=== PATIENT | male | born 1935 | race Caucasian/White ===

== ENCOUNTER 2017-01-29 14:51 | Inpatient (IN) | payer OTHER ==
[~2017-01-29] VITALS: Ht 178 cm; Wt 101.0 kg
--- NOTE | ~2017-01-29 | CON ---
[place], [place] REPORT OF CONSULTATION NAME: [facility]RAM [facility]OUSSAINT [facility]: [id number] UNIT #: [id number] ROOM: 412 DOCTOR: JAIRO LOCO MD BIRTHDATE: [birth year] DOS: 02/03/2017 The consultation requested for the patient by the hospitalist services. REASON FOR CONSULTATION: Nonresolving respiratory symptoms. HISTORY OF PRESENT ILLNESS: This is an 81-year-old white male who has been hospitalized since 01/29/2017. The patient has been noted with acute ongoing symptoms a few days prior to admission to the hospital. He started with symptoms having progressive increased cough, and the patient with intermittent sputum expectoration, wheezing, shortness of breath with exertion and tightness in the chest. The patient has been managed at this time for acute exacerbation of chronic obstructive pulmonary disease/bronchial asthma by the hospitalist services. The patient stated he has not been improving with current medical management, continued to have cough which is currently noted nonproductive, inability to expectorate sputum with persistent wheezing, chest tightness as well as symptoms of shortness breath. Denies symptoms of hemoptysis or chest trauma. REVIEW OF SYSTEMS: CONSTITUTIONAL SYMPTOMS: Denies symptoms of fever or chills. The patient complains symptoms of fatigue and tiredness. EYES: Denies any burning, redness, or tenderness. EARS, NOSE, THROAT: No sore throat, hoarseness, otalgia, postnasal drainage. CARDIOVASCULAR: Denies anginal pain, edema or pain of the lower extremities. GASTROINTESTINAL: Denies dysphagia, nausea, vomiting, diarrhea, abdominal pain, hematemesis, melena, hematochezia. SKIN: Denies lesions or rashes. GENITOURINARY SYMPTOMS: Denies dysuria, suprapubic pain, hematuria. CENTRAL NERVOUS SYSTEM: Denies any headache, diplopia, syncopal episodes or seizures. Remaining systems were reviewed with the patient, they were noted all negative. PAST MEDICAL HISTORY: 1. Type 2 diabetes mellitus. 2. Moderate obesity. 3. Essential hypertension. 4. Diabetic nephropathy. 5. Paroxysmal atrial fibrillation. 6. History of cancer of the bladder. PAST SURGICAL HISTORY: 1. Left knee arthroplasty. 2. Cholecystectomy. 3. TURP. 4. Hydrocelectomy. SOCIAL HISTORY: The patient is currently , lives at home. He was noted as lifetime nonsmoker. There is no history of alcohol use or any illicit drugs. [place], [place] REPORT OF CONSULTATION NAME: KHURRAM TOUSSAINT UNIT #: [id number] ROOM: 412 DOCTOR: JAIRO LOCO MD BIRTHDATE: [birth year] FAMILY HISTORY: The patient's father at the age of 8080 years old from old age. Mother at the age of 5050 years old, complications of GI cancer. MEDICATIONS: The home medications noted use of Eliquis, aspirin, clonidine, Zetia. Recent prescription for doxycycline 100 mg b.i.d., Janumet, Neurontin, potassium chloride, Diovan HCT, and other p.r.n. medications administration. ALLERGIES: 1. The drug allergy history of the patient was noted remarkable for PENICILLIN causing anaphylaxis: 2. ELIQUIS. PHYSICAL EXAMINATION: GENERAL: An 81-year-old male who has been currently noted awake and alert. The patient's height is recorded as 5 feet 10 inches, weight of 223 pounds, BMI 31.8. VITAL SIGNS: Shows a normal temperature, respiratory rate of 20, heart rate 88, blood pressure 148/67. Pulse oxygen saturation on room air is 96% saturation recorded. HEENT: Examination shows head is atraumatic. Eyes: No icterus. NECK: Supple. CARDIOVASCULAR: S1, S2 audible. LUNGS: Shows diffuse reduced breath sounds. Lungs noted bilaterally with severe expiratory wheezing, no crackles. ABDOMEN: Flat, soft, nontender. Bowel sounds present. EXTREMITIES: Showed no edema or cyanosis. NEUROLOGIC: Cranial nerves 2 through 12 intact. No focal deficits. MUSCULOSKELETAL: No deformities. SKIN: Showed no lesions or rashes. LABORATORY DATA: CBC of the patient on 01/30/2017 was noted essentially normal. CMP of the patient on 01/30/2017, glucose 214, BUN and creatinine was normal. Sodium 146, potassium 2.9. CBC of this morning, WBC count 15.4, hemoglobin and hematocrit normal, platelet count of 272,000, 85% segmented neutrophils noted with differentials. BMP of the patient that was done on 02/03/2017 of BUN 31, creatinine was normal, glucose 189, potassium 3.0 with remaining electrolytes as normal. Review of the radiology data: The chest x-ray of the patient that was done on 01/29/2017 was reviewed. It shows changes of hyperinflation and COPD was noted with possibility of underlying fine interstitial pulmonary fibrosis cannot be completely excluded. IMPRESSION: 1. The patient who has been currently noted with a new onset of acute exacerbation of bronchial asthma and tracheobronchitis. 2. History of cancer of the bladder was also described. 3. Moderate obesity. 4. Leukocytosis, most likely induced by the corticosteroids. 5. Azotemia of the patient related to the use of the corticosteroids. [place], [place] REPORT OF CONSULTATION NAME: KHURRAM TOUSSAINT UNIT #: [id number] ROOM: 412 DOCTOR: ROGERIO RICHARDSON MD,JAIRO BIRTHDATE: [birth year] PLAN OF TREATMENT: Continue current medical management with bronchodilators, use of the current steroids, Solu-Medrol 40 mg b.i.d., and other treatment plan of management. Usual care as previously to be continued as well. Further treatment changes will be done based on the progression of his illness. The patient was suspected severe impaction of the mucus plugs which has not been resolving with the current conservative treatment. The patient is on maximal medical therapy. Continue current dose of corticosteroids, bronchodilators, and the flutter valve usage. Fiberoptic bronchoscopy planned tentatively to be done offensive morning for the patient. The symptom does not resolve. The risk and benefits of procedure have been obtained for the patient. He was agreeable for the current procedure. In the meantime, all other treatment to be continued previously, close monitoring of respiratory status. Thanks for allowing me to participate in the care of this patient. JAIRO BEATTY MD CM:CONSTR:REPORT OF CONSULTATION 1231 02/04/17 0321 interface
--- NOTE | ~2017-01-29 | PR ---
[place], [place] PROGRESS NOTE NAME: KHURRAM TOUSSAINT UNIT #: [id number] ROOM: 412 DOCTOR: ROGERIO RICHARDSON MD,JAIRO BIRTHDATE: [birth year] DOS: 02/05/2017 SUBJECTIVE: The patient has been noted persistent coughing, chest congestion, inability to expectorate sputum. Continue antibiotics, bronchodilators and the corticosteroids. Denies symptoms of chest pain or any abdominal pain. OBJECTIVE: VITAL SIGNS: For the patient which was recorded, showed the temperature noted as normal. The respiratory rate was 20, heart rate 85, blood pressure 140/75. Pulse oxygen saturation of the patient on room air was 98% saturation. HEENT: Showed no new change. NECK: Supple. CARDIOVASCULAR SYSTEM: S1, S2 audible. LUNGS: The patient was noted with moderate expiratory wheezing. The patient remains persistent without any crackles. ABDOMEN: Soft, nontender. LABORATORY DATA: CBC today: WBC count 19.8, 83% segmented neutrophils, noted differential with the remaining CBC normal. The BMP of the patient, glucose ____, BUN 29, creatinine was normal. IMPRESSION: 1. Persistent acute exacerbation of bronchial asthma with the tracheobronchitis for the patient new onset. 2. History of bladder cancer. 3. Leukocytosis for the patient was still noted significant at this time and was noted increased for the patient 19.8 most likely related to corticosteroids. PLAN OF TREATMENT: Proceed with the bronchoscopy as planned. No other change in treatment for the patient. Any changes in the medical management needed will be done after bronchoscopy. JAIRO BEATTY MD CM:PNTRANS [id number] JAIRO RICHARDSON MD 02/06/17 0347 interface
--- NOTE | ~2017-01-29 | PR ---
[place], [place] PROGRESS NOTE NAME: KHURRAM TOUSSAINT UNIT #: [id number] ROOM: 412 DOCTOR: ROGERIO RICHARDSON MD,JAIRO BIRTHDATE: [birth year] DOS: 02/04/2017 PULMONARY FOLLOWUP SUBJECTIVE: He has been still noticing symptoms of coughing, chest congestion, and inability to expectorate sputum. Shortness breath and wheezing was also described. OBJECTIVE: VITAL SIGNS: For the patient, which were recorded shows normal temperature, respiratory rate 18, heart rate 79, blood pressure 158/71. Pulse oxygen saturation of the patient recorded as 90% on 2 L nasal cannula. HEENT: Showed no new change. NECK: Supple. CARDIOVASCULAR: S1, S2 audible. LUNGS: The patient noted with decreased breath sounds, expiratory wheezing in the lungs were noted bilaterally. ABDOMEN: Soft, nontender. IMPRESSION: 1. The patient with acute tracheobronchitis. The patient was noted with a new onset for this patient with increased respiratory symptoms at this time, currently treated with medication. 2. Severe impacted mucus at the endobronchial tree were noted. 3. Leukocytosis. The patient was still noted CBC today showing WBC count 13.6. PLAN OF TREATMENT: Proceed with bronchoscopy planned to be done for this patient tomorrow. In the meantime, continue the patient on current therapy, plan of management. No changes in the treatment to be done today. JAIRO BEATTY MD CM:PNTRANS [id number] JAIRO RICHARDSON MD 02/05/17 0710 interface
--- NOTE | ~2017-01-29 | PROC NOTE ---
[place], [place] PROCEDURE NOTE NAME: KHURRAM TOUSSAINT UNIT #: [id number] ROOM: 412 DOCTOR: ROGERIO RICHARDSON MD,JAIRO BIRTHDATE: [birth year] DOS: 02/05/2017 PROCEDURE: Bronchoscopy. PREOPERATIVE DIAGNOSES: 1. The patient with ongoing nonresolving cough at this time with maximum medical therapy. 2. Leukocytosis. PROCEDURE DESCRIPTION: Informed consent was obtained for the patient. The patient brought to the OR and placed in supine position. Conscious sedation administered by the Anesthesia Department. After achieving appropriate sedation, airway introduced into the mouth. Bronchoscope advanced into the airway into laryngeal area. Epiglottis and vocal cords were seen. Vocal cords were moving symmetrically with movements for this patient. Bronchoscope advanced into the tracheal lumen, which are noted with thick mucoid secretion with small purulent secretions suctioned out at the sharmila level. Right upper, right middle, right lower, left upper, lingular lower lobe bronchi were all examined. Moderate patches of similar secretions as noted in trachea causing impaction of the endobronchial tree subsegments. All secretions suctioned out with the help of normal saline wash, sent for culture. Procedure well tolerated by the patient without any complications. Postoperative findings will be discussed with the patient once the patient recovers the effects of acute sedation. JAIRO BEATTY MD CM:PROCNOTE:PROCEDURE NOTE [phone] JAIRO RICHARDSON MD
[~2017-01-29 14:51] MED LIST: ASPIRIN ADULT L81 M1 PO; CLONIDINE0.2 MG PO; DOXYCYCLINE100 M3 PO; ELIQUIS5 M1 PO; JANUMET 1000 MG1 TA1 PO; KLOR-CON M2020 ME1 PO; NEURONTIN300 MG PO; TAZTIA XT360 MG PO; UNSURE OF MEDS; VALSARTAN-HCTZ1 EAC3 PO
[2017-01-29 14:57] VITALS: BP 1132/80; BP 132/80
[2017-01-29 15:31] LABS: BASO # 0.2 10*3/uL (0.0-0.1); BASO % 1.8 % (0.0-1.0); EOS # 1.6 10*3/uL (0.0-0.4); EOS % 18.1 % (1.0-4.0); HEMATOCRIT 44.1 % (42.0-52.0); HEMOGLOBIN 14.9 g/dl (14.0-18.0); LYMPH # 1.4 10*3/uL (1.3-4.4); LYMPH % 15.4 % (27.0-41.0); MEAN CELL VOLUME 85.3 fl (80.0-94.0); MEAN CORPUSCULAR HGB 28.8 pg (27.0-31.0); MEAN CORPUSCULAR HGB CONC 33.8 g/dl (33.0-37.0); MEAN PLATELET VOLUME 10.5 fl (9.6-12.3); MONO # 0.8 10*3/uL (0.1-1.0); MONO % 9.5 % (3.0-9.0); NEUT # 4.9 10*3/uL (2.3-7.9); PLATELET COUNT AUTOMATED 223 10*3/uL (130-400); RED BLOOD COUNT 5.17 10*6/uL (4.50-5.90); RED CELL DISTRI WIDTH 13.2 % (0-14.5); WHITE BLOOD COUNT 8.9 10*3/uL (4.8-10.8)
[2017-01-29 15:46] LABS: ALBUMIN 4.1 gm/dl (3.1-4.5); ALKALINE PHOSPHATASE 132 U/L (45-117); BILIRUBIN, TOTAL 0.8 mg/dl (0.2-1.0); BUN 21 mg/dl (7-24); CARBON DIOXIDE 30 mmol/L (21-32); CHLORIDE 107 mmol/L (98-107); EST GLOM FILT AFRICAN AMERICAN > 60 ml/min; GLUCOSE 125 mg/dL (65-99); POTASSIUM 2.6 mmol/L (3.5-5.1); SGOT/AST 18 IU/L (3-35); SGPT/ALT 17 U/L (12-78); SODIUM 149 mmol/L (136-145); TOTAL PROTEIN 7.6 gm/dL (6.4-8.2)
[2017-01-29 15:51] LABS: CKMB 0.7 ng/ml (0.5-3.6); CPK 62 U/L (39-308); TROPONIN I < 0.015 ng/ml (<0.045)
[2017-01-29 16:58] VITALS: BP 145/77
[2017-01-29 18:16] VITALS: BP 166/83
[2017-01-30] VITALS: BP 121/70
[2017-01-30 05:59] LABS: ALBUMIN 3.6 gm/dl (3.1-4.5); ALKALINE PHOSPHATASE 127 U/L (45-117); BILIRUBIN, TOTAL 0.5 mg/dl (0.2-1.0); BUN 22 mg/dl (7-24); CARBON DIOXIDE 31 mmol/L (21-32); CHLORIDE 104 mmol/L (98-107); CHOLESTEROL 192 mg/dL (<200); EST GLOM FILT AFRICAN AMERICAN > 60 ml/min; FREE T4 1.25 ng/dl (0.76-1.46); GLUCOSE 214 mg/dL (65-99); HDL CHOLESTEROL 48 mg/dl (40-60); LDL CHOLESTEROL 128 mg/dL (9-159); MAGNESIUM 1.8 mg/dL (1.5-2.1); PHOSPHOROUS 1.4 mg/dL (2.5-4.9); POTASSIUM 2.9 mmol/L (3.5-5.1); SGOT/AST 18 IU/L (3-35); SGPT/ALT 21 U/L (12-78); SODIUM 146 mmol/L (136-145); TOTAL PROTEIN 6.9 gm/dL (6.4-8.2); TRIGLYCERIDES 80 mg/dl (<150); VLDL CHOLESTEROL 16 mg/dL (6-40)
[2017-01-30 06:04] LABS: BASO % 0.1 % (0.0-1.0); HEMATOCRIT 42.7 % (42.0-52.0); HEMOGLOBIN 14.4 g/dl (14.0-18.0); LYMPH # 0.9 10*3/uL (1.3-4.4); LYMPH % 13.4 % (27.0-41.0); MEAN CELL VOLUME 85.6 fl (80.0-94.0); MEAN CORPUSCULAR HGB 28.9 pg (27.0-31.0); MEAN CORPUSCULAR HGB CONC 33.7 g/dl (33.0-37.0); MEAN PLATELET VOLUME 10.9 fl (9.6-12.3); MONO # 0.1 10*3/uL (0.1-1.0); MONO % 0.7 % (3.0-9.0); NEUT # 5.7 10*3/uL (2.3-7.9); NEUT % 85.4 % (47.0-73.0); PLATELET COUNT AUTOMATED 224 10*3/uL (130-400); RED BLOOD COUNT 4.99 10*6/uL (4.50-5.90); RED CELL DISTRI WIDTH 13.2 % (0-14.5); THYROID STIM HORMONE (HS) 0.052 uIU/ml (0.358-4.75); WHITE BLOOD COUNT 6.7 10*3/uL (4.8-10.8)
[2017-01-30 06:10] LABS: INTERNATIONAL NORM RATIO 1.1 (2.0-3.5); PROTHROMBIN TIME 11.7 SECONDS (9.0-12.4)
[2017-01-30 06:37] LABS: HEMOGLOBIN A1c 6.3 % (4.8-5.6)
[2017-01-30 08:00] VITALS: BP 121/74; BP 160/60
[2017-01-30 09:53] LABS: VITAMIN D, 25-HYDROXY 32.5 ng/mL (30-100)
[2017-01-30 09:56] LABS: FOLIC ACID > 24.00 ng/mL (>5.38)
[2017-01-30 12:00] VITALS: BP 153/71
[2017-01-30 16:00] VITALS: BP 140/52
[2017-01-30 20:00] VITALS: BP 147/61
[2017-01-31] VITALS: BP 123/52
[2017-01-31 06:00] LABS: BUN 23 mg/dl (7-24); CARBON DIOXIDE 32 mmol/L (21-32); CHLORIDE 107 mmol/L (98-107); EST GLOM FILT AFRICAN AMERICAN > 60 ml/min; GLUCOSE 188 mg/dL (65-99); SODIUM 145 mmol/L (136-145)
[2017-01-31 08:00] VITALS: BP 143/60
[2017-01-31 12:00] VITALS: BP 139/53
[2017-01-31 16:00] VITALS: BP 145/72
[2017-01-31 20:00] VITALS: BP 140/61
[2017-02-01] VITALS: BP 140/73
[2017-02-01 08:00] VITALS: BP 149/75
[2017-02-01 08:48] LABS: ALBUMIN 3.9 gm/dl (3.1-4.5); ALKALINE PHOSPHATASE 133 U/L (45-117); BILIRUBIN, TOTAL 0.5 mg/dl (0.2-1.0); BUN 23 mg/dl (7-24); CARBON DIOXIDE 32 mmol/L (21-32); CHLORIDE 103 mmol/L (98-107); EST GLOM FILT AFRICAN AMERICAN > 60 ml/min; GLUCOSE 180 mg/dL (65-99); POTASSIUM 3.1 mmol/L (3.5-5.1); SGOT/AST 20 IU/L (3-35); SGPT/ALT 28 U/L (12-78); SODIUM 146 mmol/L (136-145); TOTAL PROTEIN 7.3 gm/dL (6.4-8.2)
[2017-02-01 12:00] VITALS: BP 150/79
[2017-02-01 16:00] VITALS: BP 157/67
[2017-02-01 20:00] VITALS: BP 157/67
[2017-02-02] VITALS: BP 135/59
[2017-02-02 07:23] LABS: BASO % 0.1 % (0.0-1.0); HEMATOCRIT 44.9 % (42.0-52.0); HEMOGLOBIN 15.3 g/dl (14.0-18.0); IG # 0.2 10*3/uL (0.0-0.1); LYMPH # 1.4 10*3/uL (1.3-4.4); LYMPH % 9.1 % (27.0-41.0); MEAN CELL VOLUME 86.3 fl (80.0-94.0); MEAN CORPUSCULAR HGB 29.4 pg (27.0-31.0); MEAN CORPUSCULAR HGB CONC 34.1 g/dl (33.0-37.0); MEAN PLATELET VOLUME 10.9 fl (9.6-12.3); MONO # 0.5 10*3/uL (0.1-1.0); MONO % 3.4 % (3.0-9.0); NEUT % 86.1 % (47.0-73.0); PLATELET COUNT AUTOMATED 275 10*3/uL (130-400); RED CELL DISTRI WIDTH 13.6 % (0-14.5); WHITE BLOOD COUNT 15.1 10*3/uL (4.8-10.8)
[2017-02-02 07:49] LABS: BUN 27 mg/dl (7-24); CARBON DIOXIDE 30 mmol/L (21-32); CHLORIDE 103 mmol/L (98-107); EST GLOM FILT AFRICAN AMERICAN > 60 ml/min; GLUCOSE 222 mg/dL (65-99); SODIUM 145 mmol/L (136-145)
[2017-02-02 08:00] VITALS: BP 140/82
[2017-02-02 12:00] VITALS: BP 152/78
[2017-02-02 16:00] VITALS: BP 160/70
[2017-02-02 20:37] VITALS: BP 150/67
[2017-02-03 00:08] VITALS: BP 146/60
[2017-02-03 06:55] LABS: BASO % 0.1 % (0.0-1.0); HEMATOCRIT 44.5 % (42.0-52.0); HEMOGLOBIN 14.9 g/dl (14.0-18.0); IG # 0.2 10*3/uL (0.0-0.1); LYMPH # 1.2 10*3/uL (1.3-4.4); LYMPH % 7.9 % (27.0-41.0); MEAN CELL VOLUME 86.1 fl (80.0-94.0); MEAN CORPUSCULAR HGB 28.8 pg (27.0-31.0); MEAN CORPUSCULAR HGB CONC 33.5 g/dl (33.0-37.0); MEAN PLATELET VOLUME 10.9 fl (9.6-12.3); MONO # 0.8 10*3/uL (0.1-1.0); MONO % 5.1 % (3.0-9.0); NEUT # 13.2 10*3/uL (2.3-7.9); NEUT % 85.7 % (47.0-73.0); PLATELET COUNT AUTOMATED 272 10*3/uL (130-400); RED BLOOD COUNT 5.17 10*6/uL (4.50-5.90); RED CELL DISTRI WIDTH 13.7 % (0-14.5); WHITE BLOOD COUNT 15.4 10*3/uL (4.8-10.8)
[2017-02-03 07:30] LABS: BUN 31 mg/dl (7-24); CARBON DIOXIDE 31 mmol/L (21-32); CHLORIDE 103 mmol/L (98-107); EST GLOM FILT AFRICAN AMERICAN > 60 ml/min; GLUCOSE 189 mg/dL (65-99); SODIUM 143 mmol/L (136-145)
[2017-02-03 08:00] VITALS: BP 134/89
[2017-02-03 12:00] VITALS: BP 148/67
[2017-02-03 16:00] VITALS: BP 162/68
[2017-02-03 20:00] VITALS: BP 157/65
[2017-02-04] VITALS: BP 135/73
[2017-02-04 07:03] LABS: BASO % 0.1 % (0.0-1.0); HEMATOCRIT 45.1 % (42.0-52.0); HEMOGLOBIN 14.9 g/dl (14.0-18.0); IG # 0.2 10*3/uL (0.0-0.1); LYMPH # 1.1 10*3/uL (1.3-4.4); LYMPH % 8.3 % (27.0-41.0); MEAN CELL VOLUME 85.7 fl (80.0-94.0); MEAN CORPUSCULAR HGB 28.3 pg (27.0-31.0); MEAN PLATELET VOLUME 10.8 fl (9.6-12.3); MONO # 0.6 10*3/uL (0.1-1.0); MONO % 4.6 % (3.0-9.0); NEUT # 11.7 10*3/uL (2.3-7.9); NEUT % 85.9 % (47.0-73.0); PLATELET COUNT AUTOMATED 270 10*3/uL (130-400); RED BLOOD COUNT 5.26 10*6/uL (4.50-5.90); RED CELL DISTRI WIDTH 13.9 % (0-14.5); WHITE BLOOD COUNT 13.6 10*3/uL (4.8-10.8)
[2017-02-04 07:29] LABS: ALBUMIN 3.2 gm/dl (3.1-4.5); ALKALINE PHOSPHATASE 126 U/L (45-117); BILIRUBIN, TOTAL 0.6 mg/dl (0.2-1.0); BUN 27 mg/dl (7-24); CARBON DIOXIDE 31 mmol/L (21-32); CHLORIDE 103 mmol/L (98-107); EST GLOM FILT AFRICAN AMERICAN > 60 ml/min; GLUCOSE 211 mg/dL (65-99); POTASSIUM 3.4 mmol/L (3.5-5.1); SGOT/AST 14 IU/L (3-35); SGPT/ALT 24 U/L (12-78); SODIUM 143 mmol/L (136-145)
[2017-02-04 08:00] VITALS: BP 153/74
[2017-02-04 12:00] VITALS: BP 158/71
[2017-02-04 16:00] VITALS: BP 162/72
[2017-02-04 20:00] VITALS: BP 151/63; BP 170/60
[2017-02-05] VITALS (7 sets, daily range): BP systolic 140–169; BP diastolic 62–86
[2017-02-05 06:48] LABS: HEMATOCRIT 47.7 % (42.0-52.0); HEMOGLOBIN 16.2 g/dl (14.0-18.0); MEAN CORPUSCULAR HGB 29.6 pg (27.0-31.0); MEAN PLATELET VOLUME 10.8 fl (9.6-12.3); PLATELET COUNT AUTOMATED 298 10*3/uL (130-400); RED BLOOD COUNT 5.48 10*6/uL (4.50-5.90); RED CELL DISTRI WIDTH 13.8 % (0-14.5); WHITE BLOOD COUNT 19.8 10*3/uL (4.8-10.8)
[2017-02-05 07:15] LABS: LYMPHOCYTE # 1.8 10*3/uL (1.3-4.4); MONOCYTE # 1.6 10*3/uL (0.1-1.0); NEUTROPHIL # 16.4 10*3/uL (2.3-7.9); NEUTROPHILS 83 % (47-73); OVALOCYTES FEW; PLATELET SUFFICIENCY NORMAL (NORMAL); TOTAL CELLS COUNTED 100 #CELLS
[2017-02-05 07:23] LABS: BUN 29 mg/dl (7-24); CARBON DIOXIDE 32 mmol/L (21-32); CHLORIDE 102 mmol/L (98-107); EST GLOM FILT AFRICAN AMERICAN > 60 ml/min; GLUCOSE 213 mg/dL (65-99); POTASSIUM 3.6 mmol/L (3.5-5.1); SODIUM 143 mmol/L (136-145)
[2017-02-05] MEDS ORDERED: KLOR-CON M2020 ME1 PO (11:15)
[2017-02-05] MEDS ORDERED: LEVAQUIN500 M2 PO (11:15)
[2017-02-05] MEDS ORDERED: PREDNISONE10 MG PO (11:15)
[2017-02-06 16:10] LABS: ACID FAST SPEC PROCESSING Concentration (.)
== END 2017-02-05 14:04 | disposition home or self-care (01) | DRG 189 ==
LOC: ED 14:51 → EDHOLD 16:59 → 4E 16:59
PROVIDERS: Family Medicine; Internal Medicine; Internal Medicine Critical Care Medicine; Internal Medicine Hospice and Palliative Medicine; Registered Nurse; Student in an Organized Health Care Education/Training Program
DX: J96.01 Acute respiratory failure with hypoxia (principal); E87.0 Hyperosmolality and hypernatremia; E11.42 Type 2 diabetes mellitus with diabetic polyneuropathy; J44.0 Chronic obstructive pulmonary disease with (acute) lower respiratory infection; J45.901 Unspecified asthma with (acute) exacerbation; J44.1 Chronic obstructive pulmonary disease with (acute) exacerbation; E87.6 Hypokalemia; I48.0 Paroxysmal atrial fibrillation; E66.9 Obesity, unspecified; D72.829 Elevated white blood cell count, unspecified; T38.0X5A Adverse effect of glucocorticoids and synthetic analogues, initial encounter; J20.9 Acute bronchitis, unspecified; I10 Essential (primary) hypertension; Z90.49 Acquired absence of other specified parts of digestive tract; Y92.89 Other specified places as the place of occurrence of the external cause; Z80.0 Family history of malignant neoplasm of digestive organs; Z85.51 Personal history of malignant neoplasm of bladder; Z88.0 Allergy status to penicillin; Z79.82 Long term (current) use of aspirin; Z79.899 Other long term (current) drug therapy; Z88.8 Allergy status to other drugs, medicaments and biological substances; Z68.34 Body mass index [BMI] 34.0-34.9, adult

== ENCOUNTER → 2017-04-18 | Outpatient (CLI) | payer OTHER ==
[~2017-04-18] MED LIST changes: +LEVAQUIN500 M2 PO; +PREDNISONE10 MG PO
== END | disposition home or self-care (01) ==
LOC: CT 09:08
DX: J84.10 Pulmonary fibrosis, unspecified (principal); I25.10 Atherosclerotic heart disease of native coronary artery without angina pectoris; J43.9 Emphysema, unspecified

== ENCOUNTER → 2017-10-16 | Outpatient (CLI) | payer OTHER ==
[2017-10-16 09:54] LABS: BUN 22 mg/dl (7-24); CREATININE 1.02 mg/dL (0.70-1.30)
== END | disposition home or self-care (01) ==
LOC: LAB 09:09 → CT 09:09
PROVIDERS: Internal Medicine Critical Care Medicine
DX: J43.8 Other emphysema (principal); I25.10 Atherosclerotic heart disease of native coronary artery without angina pectoris; I51.7 Cardiomegaly; E04.1 Nontoxic single thyroid nodule; E04.9 Nontoxic goiter, unspecified; I70.0 Atherosclerosis of aorta; R59.0 Localized enlarged lymph nodes; Z87.01 Personal history of pneumonia (recurrent)

== ENCOUNTER 2018-04-03 09:17 | Emergency (ER) | payer OTHER ==
[2018-04-03] MEDS ORDERED: VIBRAMYCIN100 MG PO (09:52)
== END 2018-04-03 09:54 | disposition home or self-care (01) ==
LOC: ED 09:17
DX: S91.205A Unspecified open wound of left lesser toe(s) with damage to nail, initial encounter (principal); J44.9 Chronic obstructive pulmonary disease, unspecified; E11.40 Type 2 diabetes mellitus with diabetic neuropathy, unspecified; I10 Essential (primary) hypertension; I48.0 Paroxysmal atrial fibrillation; Z88.0 Allergy status to penicillin; Z88.8 Allergy status to other drugs, medicaments and biological substances; Z79.2 Long term (current) use of antibiotics; Z79.899 Other long term (current) drug therapy; E66.9 Obesity, unspecified; Z68.30 Body mass index [BMI] 30.0-30.9, adult; Z90.49 Acquired absence of other specified parts of digestive tract; X58.XXXA Exposure to other specified factors, initial encounter; Y93.89 Activity, other specified; Y92.89 Other specified places as the place of occurrence of the external cause; Y99.8 Other external cause status

== ENCOUNTER 2018-08-10 15:19 | Inpatient (IN) | payer OTHER ==
[~2018-08-10] VITALS: Ht 180.3 cm; Wt 104.9 kg
--- NOTE | ~2018-08-10 | EKG ---
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
--- NOTE | ~2018-08-10 | O ---
[place], [place] OPERATIVE NOTE NAME: KHURRAM TOUSSAINT UNIT #: [id number] ROOM: 507 DOCTOR: TRINO RANDFELICITY BIRTHDATE: [birth year] DOS: 08/12/2018 HISTORY OF PRESENT ILLNESS: The patient has presented with chief complaint of abdominal pain, blood in the stool, and epigastric distress. The patient has been on aspirin daily. His H and H at the time of admission was 14 and 44. White blood cell was 8.4. Comprehensive metabolic panel; BUN and creatinine 29 and 1.19. His potassium was low at 2.8, this was supplemented. 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 The INR is 1.1. Troponin and magnesium within normal limits. Troponin again 0.17. Troponin 0.72 again normal. Comprehensive metabolic panel, electrolyte balance, and bilirubin 1.3. Alkaline phosphatase 136. 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 The patient was admitted for definitive evaluation of his findings and presentation of blood in the stool. PAST MEDICAL HISTORY: Chronic obstructive pulmonary disease, diabetes mellitus, diabetic neuropathy, degenerative joint disease, umbilical hernia, obesity, and degenerative joint disease. PAST SURGICAL HISTORY: Cholecystectomy, arthroscopy of left knee, and hydrocele repair. SOCIAL HISTORY: Nonsmoker and nonalcohol consumer. FAMILY HISTORY: Noncontributory. ALLERGIES: ELIQUIS THAT HE TOOK FOR 3 DAYS; HE HAD ALLERGIC REACTION AND HE HAD TO STOP, AND PENICILLIN. MEDICATIONS AT HOME: Reviewed. REVIEW OF SYSTEMS: HEENT: Denies double vision, blurred vision. RESPIRATORY: Denies shortness of breath. CARDIOVASCULAR: Denies acute chest pain. DIGESTIVE SYSTEM: Blood in the stool, epigastric distress, abdominal pain. PHYSICAL EXAMINATION: VITAL SIGNS: Stable, comfortable, nontoxic. HEENT: Nontraumatic. Eyes: Pupils round and reactive. Sclerae nonicteric. Mouth and buccal mucosa benign. NECK: Supple. No thyromegaly, no cervical lymphadenopathy. CHEST: Symmetric anatomy, equal expansion. No wheeze, no rhonchi. HEART: Normal sinus rhythm. No gallop. No murmur. EXTREMITIES: A 2+ pedal edema. NEUROLOGICAL: Fully Alert, oriented to time, place, and person. Sensory and motor intact. Cranial nerves 2-12 intact. [place], [place] OPERATIVE NOTE NAME: KHURRAM TOUSSAINT UNIT #: [id number] ROOM: 507 [facility] [birth year] IMPRESSION: GI bleed, epigastric distress, and abdominal pain. PLAN AND DISCUSSION: We are going to proceed with colonoscopy and EGD in this patient and we will search this etiology for GI bleed, ruling out ischemic colon, ruling out peptic ulcer disease versus diverticular bleed versus occult malignancy all in differential. OPERATIVE PROCEDURE #1: INDICATION FOR PROCEDURE: The patient has presented with GI bleed, epigastric distress on aspirin. PROCEDURE: Today's procedure part of investigation is panendoscopy and colonoscopy. PREMEDICATION: Propofol. SCOPE: Olympus forward-viewing gastroscope Q10 video. REPORT: After putting the patient in left lateral position and application of lubricant to the scope, the scope was introduced. Thereafter under direct visualization, advanced through the length of esophagus without difficulty. A 3 cm hiatal hernia was noticed. Gastric pouch was entered. Gastritis seen. Duodenal bulb, second and third part within normal limits. Antral biopsy obtained for H. pylori. GI reflection of the scope reveals cardiac to be benign. Air was suctioned out. The patient was extubated and tolerated the procedure well. IMPRESSION: Gastritis and hiatal hernia. PLAN AND DISCUSSION: We are going to proceed with colonoscopic evaluation. PROCEDURE #2: OPERATION PERFORMED: Today's procedure part of investigation of GI bleed is colonoscopy plus biopsy and snare polypectomy. PREMEDICATION: Propofol. SCOPE: Olympus forward-viewing colonoscope 10L video. REPORT: After putting the patient in left lateral position and application of lubricant to the scope, the scope was introduced. Thereafter, under direct visualization, advanced through the length of colon without difficulty. Diverticulosis of colon was appreciated. Nonspecific colitis and sigmoid colon was identified. Multiple biopsies obtained. Base of the cecum explored, appendiceal orifice identified, ileocecal valve was defined. Scope was gradually withdrawn from ascending, transverse, descending colon. Small hemorrhoids noticed. The patient extubated and tolerated the procedure well. [place], [place] OPERATIVE NOTE NAME: KHURRAM TOUSSAINT UNIT #: [id number] ROOM: 507 DOCTOR: FELICITY JAMESON MD BIRTHDATE: [birth year] IMPRESSION: Diverticulosis, nonspecific segmental colitis of sigmoid, status post biopsy; and hemorrhoids. PLAN: Resumption of feeding and no acute concern. The patient can be feed with regular diet. Thank you very much indeed for your kind referral. FELICITY JAMESON MD CM:OPRECORD:OPERATIVE NOTE 1229 1311 FELICITY JAMESON MD 08/26/18 0727 interface
[~2018-08-10 15:19] MED LIST changes: +VIBRAMYCIN100 MG PO
[2018-08-10 15:20] VITALS: BP 133/76
[2018-08-10 16:00] VITALS: BP 164/82
[2018-08-10 16:38] LABS: BASO # 0.1 10*3/uL (0.0-0.1); BASO % 1.1 % (0.0-1.0); EOS # 0.6 10*3/uL (0.0-0.4); EOS % 6.8 % (1.0-4.0); HEMATOCRIT 44.6 % (42.0-52.0); HEMOGLOBIN 14.8 g/dl (14.0-18.0); LYMPH # 1.9 10*3/uL (1.3-4.4); MEAN CELL VOLUME 86.6 fl (80.0-94.0); MEAN CORPUSCULAR HGB 28.7 pg (27.0-31.0); MEAN CORPUSCULAR HGB CONC 33.2 g/dl (33.0-37.0); MEAN PLATELET VOLUME 10.4 fl (9.6-12.3); MONO # 0.8 10*3/uL (0.1-1.0); MONO % 9.7 % (3.0-9.0); NEUT % 59.2 % (47.0-73.0); PLATELET COUNT AUTOMATED 224 10*3/uL (130-400); RED BLOOD COUNT 5.15 10*6/uL (4.50-5.90); RED CELL DISTRI WIDTH 13.7 % (0-14.5); WHITE BLOOD COUNT 8.4 10*3/uL (4.8-10.8)
[2018-08-10 16:52] LABS: ALBUMIN 4.2 gm/dl (3.1-4.5); ALKALINE PHOSPHATASE 153 U/L (45-117); BUN 29 mg/dl (7-24); CHLORIDE 101 mmol/L (98-107); CREATININE 1.19 mg/dL (0.70-1.30); POTASSIUM 2.8 mmol/L (3.5-5.1); SGOT/AST 24 IU/L (3-35); SGPT/ALT 24 U/L (12-78); SODIUM 143 mmol/L (136-145); TOTAL PROTEIN 7.5 gm/dL (6.4-8.2)
[2018-08-10 20:34] LABS: TROPONIN I < 0.015 ng/ml (<0.045)
[2018-08-10 20:43] VITALS: BP 165/75
[2018-08-10 20:48] VITALS: BP 164/82
[2018-08-10] MEDS ORDERED: OXYBUTYNIN10 MG PO (21:21)
[2018-08-11] VITALS: BP 146/81
[2018-08-11 06:42] LABS: BASO # 0.1 10*3/uL (0.0-0.1); BASO % 0.7 % (0.0-1.0); EOS # 0.4 10*3/uL (0.0-0.4); HEMATOCRIT 43.1 % (42.0-52.0); HEMOGLOBIN 14.3 g/dl (14.0-18.0); LYMPH # 1.6 10*3/uL (1.3-4.4); LYMPH % 17.4 % (27.0-41.0); MEAN CELL VOLUME 86.9 fl (80.0-94.0); MEAN CORPUSCULAR HGB 28.8 pg (27.0-31.0); MEAN CORPUSCULAR HGB CONC 33.2 g/dl (33.0-37.0); MEAN PLATELET VOLUME 10.7 fl (9.6-12.3); MONO # 0.8 10*3/uL (0.1-1.0); MONO % 8.8 % (3.0-9.0); NEUT # 6.5 10*3/uL (2.3-7.9); NEUT % 68.9 % (47.0-73.0); PLATELET COUNT AUTOMATED 200 10*3/uL (130-400); RED BLOOD COUNT 4.96 10*6/uL (4.50-5.90); RED CELL DISTRI WIDTH 13.7 % (0-14.5); WHITE BLOOD COUNT 9.4 10*3/uL (4.8-10.8)
[2018-08-11 06:55] LABS: ALBUMIN 3.6 gm/dl (3.1-4.5); ALKALINE PHOSPHATASE 136 U/L (45-117); CHLORIDE 103 mmol/L (98-107); CHOLESTEROL 201 mg/dL (<200); CREATININE 0.99 mg/dL (0.70-1.30); FREE T4 1.06 ng/dl (0.76-1.46); HDL CHOLESTEROL 39 mg/dl (40-60); LDL CHOLESTEROL 133 mg/dL (9-159); PHOSPHOROUS 2.4 mg/dL (2.5-4.9); POTASSIUM 2.8 mmol/L (3.5-5.1); SGOT/AST 18 IU/L (3-35); SGPT/ALT 21 U/L (12-78); SODIUM 142 mmol/L (136-145); TOTAL PROTEIN 6.5 gm/dL (6.4-8.2); TRIGLYCERIDES 146 mg/dl (<150); VLDL CHOLESTEROL 29 mg/dL (6-40)
[2018-08-11 06:59] LABS: THYROID STIM HORMONE (HS) 0.176 uIU/ml (0.358-4.75)
[2018-08-11 07:02] LABS: BUN 19 mg/dl (7-24)
[2018-08-11 07:15] LABS: ACT PARTIAL THROMBO TIME 25.1 SECONDS (20.8-31.5); INTERNATIONAL NORM RATIO 1.1 (2.0-3.5)
[2018-08-11 08:00] VITALS: BP 144/82
[2018-08-11 08:42] LABS: VITAMIN D, 25-HYDROXY 32.6 ng/mL (30-100)
[2018-08-11 12:00] VITALS: BP 151/87
[2018-08-11 16:00] VITALS: BP 141/73
[2018-08-11 20:00] VITALS: BP 160/94
[2018-08-12] VITALS (9 sets, daily range): BP systolic 108–166; BP diastolic 36–88
[2018-08-12 06:18] LABS: BASO # 0.1 10*3/uL (0.0-0.1); EOS # 0.6 10*3/uL (0.0-0.4); EOS % 8.2 % (1.0-4.0); HEMOGLOBIN 15.6 g/dl (14.0-18.0); LYMPH # 2.3 10*3/uL (1.3-4.4); LYMPH % 29.2 % (27.0-41.0); MEAN CELL VOLUME 87.3 fl (80.0-94.0); MEAN CORPUSCULAR HGB 28.4 pg (27.0-31.0); MEAN CORPUSCULAR HGB CONC 32.5 g/dl (33.0-37.0); MEAN PLATELET VOLUME 10.6 fl (9.6-12.3); MONO # 0.8 10*3/uL (0.1-1.0); MONO % 9.9 % (3.0-9.0); NEUT % 51.4 % (47.0-73.0); PLATELET COUNT AUTOMATED 217 10*3/uL (130-400); RED CELL DISTRI WIDTH 13.6 % (0-14.5); WHITE BLOOD COUNT 7.8 10*3/uL (4.8-10.8)
[2018-08-12 06:39] LABS: BUN 10 mg/dl (7-24); CHLORIDE 105 mmol/L (98-107); CREATININE 0.94 mg/dL (0.70-1.30); POTASSIUM 2.9 mmol/L (3.5-5.1); SODIUM 144 mmol/L (136-145)
[2018-08-13] VITALS: BP 119/44
[2018-08-13 06:32] LABS: BASO # 0.1 10*3/uL (0.0-0.1); BASO % 0.9 % (0.0-1.0); EOS # 0.7 10*3/uL (0.0-0.4); EOS % 8.1 % (1.0-4.0); LYMPH # 2.1 10*3/uL (1.3-4.4); LYMPH % 24.5 % (27.0-41.0); MEAN CELL VOLUME 86.5 fl (80.0-94.0); MEAN CORPUSCULAR HGB CONC 33.5 g/dl (33.0-37.0); MEAN PLATELET VOLUME 10.7 fl (9.6-12.3); MONO % 12.1 % (3.0-9.0); NEUT # 4.7 10*3/uL (2.3-7.9); NEUT % 54.3 % (47.0-73.0); PLATELET COUNT AUTOMATED 203 10*3/uL (130-400); RED BLOOD COUNT 4.66 10*6/uL (4.50-5.90); RED CELL DISTRI WIDTH 13.9 % (0-14.5); WHITE BLOOD COUNT 8.6 10*3/uL (4.8-10.8)
[2018-08-13 06:43] LABS: ALBUMIN 3.3 gm/dl (3.1-4.5); BUN 11 mg/dl (7-24); CHLORIDE 106 mmol/L (98-107); POTASSIUM 2.7 mmol/L (3.5-5.1); SGOT/AST 18 IU/L (3-35); SGPT/ALT 20 U/L (12-78); SODIUM 143 mmol/L (136-145)
[2018-08-13 06:45] LABS: HEMATOCRIT 40.3 % (42.0-52.0); HEMOGLOBIN 13.5 g/dl (14.0-18.0)
[2018-08-13 06:46] LABS: ALKALINE PHOSPHATASE 116 U/L (45-117); CREATININE 0.93 mg/dL (0.70-1.30); TOTAL PROTEIN 6.2 gm/dL (6.4-8.2)
[2018-08-13 08:00] VITALS: BP 142/78
[2018-08-13 12:00] VITALS: BP 141/71
== END 2018-08-13 16:33 | disposition home or self-care (01) | DRG 378 ==
LOC: ED 15:19 → EDHOLD 19:55 → 5E 19:55
PROVIDERS: Internal Medicine; Physician Assistant
PROC: 0DBN8ZX Excision of Sigmoid Colon, Via Natural or Artificial Opening Endoscopic, Diagnostic (ICD-10-PCS; principal; 2018-08-12)
PROC: 0DB68ZX Excision of Stomach, Via Natural or Artificial Opening Endoscopic, Diagnostic (ICD-10-PCS; principal; 2018-08-12)
PROC: 0DBP8ZX Excision of Rectum, Via Natural or Artificial Opening Endoscopic, Diagnostic (ICD-10-PCS; principal; 2018-08-12)
DX: K62.5 Hemorrhage of anus and rectum (principal); D62 Acute posthemorrhagic anemia; K57.31 Diverticulosis of large intestine without perforation or abscess with bleeding; K29.71 Gastritis, unspecified, with bleeding; E86.0 Dehydration; K59.00 Constipation, unspecified; K83.8 Other specified diseases of biliary tract; I48.0 Paroxysmal atrial fibrillation; I10 Essential (primary) hypertension; M79.2 Neuralgia and neuritis, unspecified; M51.36 Other intervertebral disc degeneration, lumbar region; E66.9 Obesity, unspecified; E87.6 Hypokalemia; J44.9 Chronic obstructive pulmonary disease, unspecified; E11.9 Type 2 diabetes mellitus without complications; M19.90 Unspecified osteoarthritis, unspecified site; K44.9 Diaphragmatic hernia without obstruction or gangrene; K52.9 Noninfective gastroenteritis and colitis, unspecified; K64.9 Unspecified hemorrhoids; K63.5 Polyp of colon; I72.8 Aneurysm of other specified arteries; Z88.0 Allergy status to penicillin; Z88.8 Allergy status to other drugs, medicaments and biological substances; Z90.49 Acquired absence of other specified parts of digestive tract; Z80.0 Family history of malignant neoplasm of digestive organs; Z79.82 Long term (current) use of aspirin; Z79.899 Other long term (current) drug therapy; Z68.32 Body mass index [BMI] 32.0-32.9, adult

== ENCOUNTER → 2018-08-14 | Outpatient (CLI) | payer OTHER ==
[~2018-08-14] MED LIST changes: +OXYBUTYNIN10 MG PO
[2018-08-14 12:17] LABS: BUN 16 mg/dl (7-24); CHLORIDE 107 mmol/L (98-107); CREATININE 1.02 mg/dL (0.70-1.30); POTASSIUM 3.3 mmol/L (3.5-5.1); SODIUM 144 mmol/L (136-145)
== END | disposition home or self-care (01) ==
LOC: LAB 11:23
PROVIDERS: Internal Medicine
DX: E87.6 Hypokalemia (principal)

== ENCOUNTER 2018-11-29 12:19 | Inpatient (IN) | payer OTHER ==
[~2018-11-29] VITALS: Ht 177.8 cm; Wt 108.4 kg
--- NOTE | ~2018-11-29 | PR ---
[place], [place] PROGRESS NOTE NAME[id number] UNIT #: [id number] ROOM: 503 DOCTOR: ROGERIO RICHARDSON MD,JAIRO BIRTHDATE: [birth year] DOS: 12/09/2018 PULMONARY PROGRESS NOTE SUBJECTIVE: The patient has been still noted with wheezing and cough, but it has been improving. Cough has been noted with significant amount of sputum expectoration done yesterday resulting in reduction of symptoms of cough. Denies symptoms of chest pain. Denies symptoms of hemoptysis. Denies symptoms of fever or chills. OBJECTIVE: VITAL SIGNS: For the patient which were recorded shows a normal temperature, respirations 16, heart rate 65, blood pressure 156/78. The pulse oxygen saturation on room air 95% saturation. HEENT: Head was atraumatic, chronic obesity. NECK: Supple. CARDIOVASCULAR: S1, S2 audible. LUNGS: Noted with mild expiratory wheezing with significant improvement noted as compared to past couple of days. There were no crackles. ABDOMEN: Soft, nontender. Bowel sounds present. LABORATORY DATA: The cultures of the bronchial washing were noted as normal dorinda today at the final results. IMPRESSION: The patient with progressive and gradual resolution was noted for acute exacerbation of chronic obstructive pulmonary disease and acute bronchitis. PLAN OF MANAGEMENT: No changes in the plan of management, except recommendation for discharge on oral tapering prednisone and oral antibiotics. Usual care. JAIRO BEATTY MD CM:PNTRANS [id number] JAIRO RICHARDSON MD 12/09/18 1644 interface
--- NOTE | ~2018-11-29 | PR ---
[place], [place] PROGRESS NOTE NAME: KHURRAM TOUSSAINT UNIT #: [id number] ROOM: 503 DOCTOR: JAIRO LOCO MD BIRTHDATE: [birth year] DOS: 12/07/2018 PULMONARY PROGRESS NOTE SUBJECTIVE: The patient was noted comfortable at this time, but still noted with coughing. The patient's wheezing remains persistent. Denies symptoms of chest pain, headache or diplopia. Denies symptoms of nausea, vomiting, diarrhea, abdominal pain, hematemesis, melena. The patient is n.p.o. past midnight for bronchoscopy planned to be done today. OBJECTIVE: VITAL SIGNS: Normal temperature, respiratory rate 20, heart rate of 82, blood pressure 142/75-133/68. The pulse oxygen saturation recorded at rest on room air as 95% saturation. HEENT: Head was atraumatic and chronic obesity. NECK: Supple. CARDIOVASCULAR: S1, S2 audible. LUNGS: Unchanged. Expiratory wheezing, which noted moderately diffuse. ABDOMEN: Soft and nontender. EXTREMITIES: No edema. MUSCULOSKELETAL: Without any acute deformities. CENTRAL NERVOUS SYSTEM: Cranial nerves 2-12 intact. LABORATORY DATA: CBC this morning: WBC count elevated at 15.6, remaining CBC normal. BMP this morning, BUN 27, creatinine normal, glucose 128, sodium 147. IMPRESSION: 1. Persistent ongoing acute exacerbation of chronic obstructive pulmonary disease for acute bronchitis impacted secretions of the airways. 2. Leukocytosis. 3. Mild azotemia secondary to corticosteroids with hypernatremia. PLAN OF MANAGEMENT: Continuation of the patient's current therapy, plan of management, proceed with fiberoptic bronchoscopy. Additional changes in the treatment will be done if necessary after bronchoscopy. Usual care. Supportive care, plan of management. Continue bronchodilators, steroids and other treatments. [place], [place] PROGRESS NOTE NAME: KHURRAM TOUSSAINT UNIT #: [id number] ROOM: 503 DOCTOR: JAIRO LOCO MD BIRTHDATE: [birth year] JAIRO BEATTY MD CM:PNTRANS 1322 0356 JAIRO RICHARDSON MD 12/08/18 0356 interface
--- NOTE | ~2018-11-29 | PR ---
[place], [place] PROGRESS NOTE NAME: KHURRAM TOUSSAINT UNIT #: [id number] ROOM: 503 DOCTOR: ROGERIO RICHARDSON MD,JAIRO BIRTHDATE: [birth year] DOS: 12/06/2018 PULMONARY PROGRESS NOTE SUBJECTIVE: He has not been noted any change in respiratory symptoms, still complaining of symptoms of coughing, chest congestion, inability to expectorate sputum. Denies symptoms of fever or chills. Denies symptoms of hemoptysis. OBJECTIVE: VITAL SIGNS: For the patient, which were recorded shows a temperature was noted as normal. The respiratory rate of 20, heart rate 88. Blood pressure of 107/90. Pulse ox 95% saturation on room air. HEENT: Shows head was atraumatic. Eyes nonicterus. NECK: Supple. CARDIOVASCULAR SYSTEM: S1, S2 audible. LUNGS: The patient was noted without any crackles. The expiratory wheezing noted moderate, remains unchanged. ABDOMEN: Soft, nontender, bowel sounds present. EXTREMITIES: The patient was noted without any acute edema, clubbing or cyanosis. IMPRESSION: Persistent ongoing acute exacerbation of chronic obstructive pulmonary disease, acute bronchitis, respiratory symptoms of coughing and wheezing. No further improvement in the last 24 hours. PLAN OF MANAGEMENT: Proceed with the fiberoptic bronchoscopy as planned tomorrow. No change in treatment at this time otherwise will be necessary. JAIRO BEATTY MD CM:PNTRANS 1254 1 JAIRO RICHARDSON MD 12/07/18210 interface
--- NOTE | ~2018-11-29 | PROC NOTE ---
[place], [place] PROCEDURE NOTE NAME: KHURRAM TOUSSAINT UNIT #: [id number] ROOM: 503 DOCTOR: ROGERIO RICHARDSON MD,JAIRO BIRTHDATE: [birth year] DOS: 12/07/2018 PREOPERATIVE DIAGNOSES: Severe coughing and wheezing, which was nonresolving. POSTOPERATIVE DIAGNOSES: Severe impaction of the mucus noted in the endobronchial tree bilaterally with ongoing finding of tracheobronchitis. PROCEDURE DESCRIPTION: Informed consent obtained. The patient was brought to the OR and placed in supine position. Conscious sedation administered by Anesthesia Department. After achieving adequate sedation, the patient's airway introduced into the mouth. Bronchoscope advanced into the airway into laryngeal area. Bronchoscope advanced to vocal cord and tracheal lumen. Tracheal lumen was noted as a moderate amount of thick mucus secretion, which also appeared to be purulent greenish in color. All the secretions suctioned out to the sharmila level. Right upper, right middle, left upper, lingula, lower lobe bronchi were all examined. Copious amount of thick mucus secretions, which appeared to be purulent causing impacting. All of the endobronchial subsegments cleared up with normal saline wash, acute inflammatory changes and some mucosal edema noted. Procedure was tolerated without any difficulty. Postoperative findings will be discussed once the patient recovered with the effects of acute sedation. The steroids at this time will be decreased to 40 mg b.i.d. dosing and other treatment, which remains unchanged after bronchoscopy. JAIRO BEATTY MD CM:PROCNOTE:PROCEDURE NOTE 1324 [id number] JAIRO RICHARDSON MD
--- NOTE | ~2018-11-29 | PR ---
[place], [place] PROGRESS NOTE NAME: KHURRAM TOUSSAINT UNIT #: [id number] ROOM: 503 DOCTOR: KHALIDA MARTIN MD BIRTHDATE: [birth year] DOS: 12/06/2018 SUBJECTIVE: The patient was seen and examined. He is awake and alert. Denies nausea or vomiting. He does have shortness of breath and cough with exertion. He overall feels the same. He has not had any chest pain. Apparently, there are plans for bronchoscopy tomorrow. PHYSICAL EXAMINATION: VITAL SIGNS: Temperature 97.6, pulse 88, respiratory rate 20, blood pressure 107/90. HEENT: Shows no JVD. LUNGS: Had bilateral rhonchi with an occasional wheeze. HEART: S1, S2. No rub, thrill or gallop. ABDOMEN: Soft, nontender. There is no organomegaly. EXTREMITIES: Had no edema. SKIN: Showed no rash. LABORATORY DATA: Reviewed. Sodium 145, potassium 3.8, CO2 of 30, calcium 8.2. ASSESSMENT AND PLAN: 1. Hypokalemia. This seemed to be somewhat of a chronic issue. The etiology is unclear. It seems diuretics may have been contributing. Potassium wasting syndrome seems unlikely. I did notice urine potassium was not markedly elevated. Hyperaldosterone condition seems less likely, but is in process of being evaluated. The patient's potassium levels are stable. Recent magnesium levels were within normal limits. We would recommend keeping off diuretics and only use loop diuretics as needed for edema and volume issues. Continue oral potassium supplementation. Can consider a low dose of Aldactone at some point. If his blood pressure tolerates, can consider 25 mg daily with proper outpatient followup. 2. Chronic obstructive pulmonary disease/dyspnea. Plan for bronchoscopy noted tomorrow. Being followed by Pulmonary. 3. Hypertension. Continue meds. Stay off hydrochlorothiazide as mentioned. The patient would be acceptable for discharge from a renal standpoint when cleared by all others. I did give him our contact and he can follow up in our office with Dr. Diez for continued monitoring of his hypokalemia issues and potentially more detailed workup if felt needed. [place], [place] PROGRESS NOTE NAME: KHURRAM TOUSSAINT UNIT #: [id number] ROOM: 503 DOCTOR: KHALIDA MARTIN MD BIRTHDATE: [birth year] KHALIDA MARTIN MD CM:PNTRANS [id number] KHALIDA MARTIN MD 12/06/18 7529 interface
--- NOTE | ~2018-11-29 | PR ---
[place], [place] PROGRESS NOTE NAME: KHURRAM TOUSSAINT UNIT #: [id number] ROOM: 503 DOCTOR: ROGERIO RICHARDSON MD,JAIRO BIRTHDATE: [birth year] DOS: 12/05/2018 SUBJECTIVE: The patient continued to do well, but reported symptoms of persistent shortness breath, coughing and wheezing, which was unchanged. Continue maximal medical management with the diuretic with use of corticosteroids, bronchodilator and the antibiotics. OBJECTIVE: GENERAL: He was currently comfortably sitting on the bed this morning of assessment has not been noted any distress. VITAL SIGNS: Normal temperature, respiratory rate of 18, blood pressure 149/60. The pulse ox saturation recorded as 93% saturation. HEENT: Moderate obesity. Head was atraumatic. Eyes nonicterus. NECK: Supple. CARDIOVASCULAR: S1, S2 is audible. LUNGS: The patient was noted without any crackles. Wheezing noted unchanged in the lungs bilaterally. ABDOMEN: Soft, nontender. EXTREMITIES: The patient chronic obesity findings. IMPRESSION AND PLAN: Persistent acute exacerbation of bronchial asthma with persistent respiratory symptoms, which were not resolving current plan of treatment: The patient was continued on the current therapy without changes need to be done at this time. He was planned for the bronchoscopy that will be done on Friday morning, n.p.o. past midnight status will be achieved from midnight of Friday. JAIRO BEATTY MD CM:PNTRANS 29 [phone] JAIRO RICHARDSON MD 12/05/181929 interface
--- NOTE | ~2018-11-29 | EKG ---
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
--- NOTE | ~2018-11-29 | PR ---
[place], [place] PROGRESS NOTE NAME: KHURRAM TOUSSAINT UNIT #: [id number] ROOM: 503 DOCTOR: JAIRO LOCO MD BIRTHDATE: [birth year] DOS: 12/08/2018 PULMONARY PROGRESS NOTE SUBJECTIVE: The patient had bronchoscopy done yesterday, still noted with significant wheezing; however, partial reduction noted. The cough has been noted currently more productive, previously noted nonproductive cough. There were no symptoms of chest pain, shortness of breath occurs with exertion, but partially decreased. PHYSICAL EXAMINATION: GENERAL: The patient is currently sitting on the bed. VITAL SIGNS: Normal temperature, respirations 18, heart rate is 96, and blood pressure is 142/89. Pulse oxygen saturation recorded as 96% saturation at rest on room air. HEENT: On examination, head was atraumatic. Eyes nonicterus. NECK: Supple. CARDIOVASCULAR SYSTEM: S1, S2 audible. LUNGS: Noted moderate expiratory wheezing, no crackles. ABDOMEN: Soft, nontender. Bowel sounds present. EXTREMITIES: No acute change. LABORATORY DATA: CBC: WBC count is 13.5. Remaining CBC was normal. The preliminary culture of bronchial washing was noted as normal dorinda. The Gram stain of the bronchial washings of yesterday with few epithelial cells, few white blood cells, no organisms seen. IMPRESSION: The patient with acute severe exacerbation of chronic obstructive pulmonary disease. The patient with acute bronchitis, status post bronchoscopy with reduction of symptoms, but the resolution noted incomplete. Significant wheezing still persistent with cough and shortness of breath. PLAN OF TREATMENT: Await another 24 hours with continuation of corticosteroids and bronchodilators. Follow up the cultures and possible consideration home discharge tomorrow morning. [place], [place] PROGRESS NOTE NAME: KHURRAM TOUSSAINT UNIT #: [id number] ROOM: 503 DOCTOR: JAIRO LOCO MD BIRTHDATE: [birth year] JAIRO BEATTY MD CM:PNTRANS [phone] JAIRO RICHARDSON MD 12/09/18 0238 interface
--- NOTE | ~2018-11-29 | CON ---
[place], [place] REPORT OF CON[facility]ULTATION [id number] UNIT #: [id number] ROOM: 503 DOCTOR: JAIRO LOCO MD BIRTHDATE: [birth year] DOS: 12/04/2018 PULMONARY CONSULTATION, EVALUATION AND MANAGEMENT CONSULTATION REQUESTED BY: Hospitalist service. REASON FOR CONSULTATION: Nonresolution of symptoms of COPD. HISTORY OF PRESENT ILLNESS: This is an 83-year-old white male patient is known to me from the office with history of bronchial asthma and COPD. He has been seen in the office on 12/03/[address] scan of the chest for assessment of lymphadenopathy. The lymphadenopathy was noted resolved. He has been admitted to the hospitalist service on the date of 11/29/2018. The patient came into the hospital as he has been reporting increasing respiratory symptom noted cough with chest congestion with associated shortness of breath, which occurred from home. The symptoms have been noted with gradual worsening. The patient denies symptoms of chest pain or any acute hemoptysis. He has been treated for acute exacerbation of COPD with corticosteroids, bronchodilators, and also receiving antibiotics. Continued to have severe chest congestion, coughing or wheezing, which has not been resolving with current medical management. The patient stated the symptoms have been noted moderate to severe and persistent and did not resolve with current medical management since admission. REVIEW OF SYSTEMS: CONSTITUTIONAL: Fatigue and tiredness reported. Denies symptoms of fever or chills. EYES: Denies any burning, redness, or tenderness. EARS, NOSE, AND THROAT: Denies sore throat, hoarseness, otalgia, postnasal drainage or epistaxis. CARDIOVASCULAR: Denies any pain of the lower extremities, any symptoms of palpitation or angina pain. GASTROINTESTINAL: Denies dysphagia, nausea, vomiting, diarrhea, abdominal pain, hematemesis, melena, or hematochezia. SKIN: Denies any abnormal lesions or rashes. MUSCULOSKELETAL: No acute joint pain, redness, or tenderness. SKIN: No lesions or rashes reported. Remaining systems were reviewed, they were noted all negative. PAST MEDICAL HISTORY: Known with history of: 1. COPD. 2. Mild intermittent uncomplicated bronchial asthma. 3. BPH. 4. Lymphadenopathy, which was noted reactive in 2017, resolved at this time was not noted any residual lymphadenopathy. 5. Chronic obesity. 6. Type 2 diabetes mellitus. 7. Degenerative intervertebral disk disease. [place], [place] REPORT OF CONSULTATION NAME: KHURRAM TOUSSAINT UNIT #: [id number] ROOM: [facility] DOCTOR: JAIRO LOCO MD BIRTHDATE: [birth year] PAST SURGICAL HISTORY: Noted with: 1. Laparoscopic cholecystectomy. 2. Lumbar laminectomy. 3. TURP. 4. T and A. 5. Bronchoscopy in 01/2017. SOCIAL HISTORY: Lives at home. 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 He is and has 3 children. FAMILY HISTORY: The patient's father at age of 86 from an old age. Mother at the age of 7474 years old, complication related to cancer. HOME MEDICATIONS: Ventolin, aspirin, clonidine, Cymbalta, [place], extra strength, gabapentin, Cardizem, losartan, Symbicort and Incruse Ellipta. CURRENT MEDICATIONS: Which have been administered on this hospitalization were noted as Solu-Medrol 60 mg t.i.d., potassium chloride, Mucinex, glipizide, Lovenox, DVT prophylaxis, Cymbalta, clonidine, losartan, gabapentin, Cardizem-CD, aspirin, DuoNeb, Zithromax, Rocephin and other p.r.n. medications. DRUG ALLERGIES: NOTED ALLERGY: 1. ELIQUIS. 2. PENICILLINS. PHYSICAL EXAMINATION: GENERAL: This is an 83-year-old white male who has been currently resting comfortably on his bed without any acute obvious distress, height of 5 feet 10 inches, weight of 108 kilograms, BMI 34.2. VITAL SIGNS: For the patient, which were recorded shows a temperature normal in the past several days, respiratory rate range between 18-20, heart rate of 81-75, blood pressure 125/60-134/70. Pulse oxygen saturation recorded at rest on room air 91-98% saturation. HEENT: Moderate obesity. Head was atraumatic. Eyes nonicterus. NECK: Supple. CARDIOVASCULAR: S1, S2 audible. LUNGS: Diffuse reduction in breath sounds bilaterally with bilateral moderate expiratory wheezing. There were no crackles. ABDOMEN: Soft with moderate obesity. Bowel sounds present. EXTREMITIES: Noted without any acute edema. MUSCULOSKELETAL: The patient was noted without any acute deformities. CENTRAL NERVOUS SYSTEM: Cranial nerves 2-12 were noted intact without any gross focal neurologic deficit. LABORATORY DATA: BMP this morning, glucose 204, remaining BMP was normal. CBC this morning, WBC count 11.5. Remaining CBC was normal. Lactic acid on admission 2.5 and variably elevated later on. The PT, PTT on admission on 11/29/2018 was normal. Influenza A and B, nasal washing antigen, 11/29/2018 was negative. CMP 11/29/2018 on admission, BUN 24, creatinine 1.34. Troponin was [place], [place] REPORT OF CONSULTATION NAME: KHURRAM TOUSSAINT UNIT #: [id number] ROOM: [facility] DOCTOR: ROGERIO RICHARDSON MD,JAIRO BIRTHDATE: [address] scan of the head for cervical spine done as well in the Emergency Room as the patient did fell at home, was noted chronic vessel ischemic changes noted, chronic left basal ganglia lacunar infarct. There was no dislocation or fracture of the cervical spine was seen. The patient has ultrasound of the lower extremities, completed as well 11/30/2018 was noted negative for any evidence of deep venous thrombosis. Blood cultures, no bacterial growth on admission already documented. Review of the radiology data pertinent to the chest was also assessed. The chest x-ray that was done this morning was noted without any acute pulmonary abnormalities. IMPRESSION: 1. The patient will be currently admitted to the hospital noted with acute exacerbation of chronic obstructive pulmonary disease and combination bronchial asthma with persistent symptoms of coughing, wheezing with maximum medical therapy, not improving. However, suspected mucus impaction of the major airways. 2. Chronic moderate obesity. 3. Benign prostatic hypertrophy and other comorbid conditions. PLAN OF THERAPY: DuoNeb will be discontinued. Change albuterol sulfate, decreased dose of Solu-Medrol, high dose of steroids at this time were not benefit. Therapeutic bronchoscopy done on Friday based on schedule availability as it would not be done over the weekend. Sputum for Gram stain and culture would be ordered in case expectorate sputum, certainly at this time has been noted with a nonproduction of the sputum. Other therapy, plan of management, care plan with additional treatment changes will be made accordingly. Antibiotic does not need to be changed at this time. Other therapy management, plan change based on progression of the illness. Thank you for allowing me to participate in the care of this patient. JAIRO BEATTY MD CM:CONSTR:REPORT OF CONSULTATION 1334 12/05/18 0333 interface
--- NOTE | ~2018-11-29 | EKG ---
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
[2018-11-29 12:20] VITALS: BP 143/75
[2018-11-29 13:04] LABS: BASO # 0.1 10*3/uL (0.0-0.1); EOS # 0.3 10*3/uL (0.0-0.4); EOS % 3.8 % (1.0-4.0); HEMATOCRIT 45.3 % (42.0-52.0); HEMOGLOBIN 15.2 g/dl (14.0-18.0); LYMPH # 1.4 10*3/uL (1.3-4.4); LYMPH % 20.5 % (27.0-41.0); MEAN CORPUSCULAR HGB 29.9 pg (27.0-31.0); MEAN CORPUSCULAR HGB CONC 33.6 g/dl (33.0-37.0); MEAN PLATELET VOLUME 10.4 fl (9.6-12.3); MONO # 1.1 10*3/uL (0.1-1.0); MONO % 16.5 % (3.0-9.0); NEUT % 57.9 % (47.0-73.0); PLATELET COUNT AUTOMATED 205 10*3/uL (130-400); RED BLOOD COUNT 5.09 10*6/uL (4.50-5.90); RED CELL DISTRI WIDTH 13.2 % (0-14.5); WHITE BLOOD COUNT 6.8 10*3/uL (4.8-10.8)
[2018-11-29 13:13] LABS: ACT PARTIAL THROMBO TIME 23.9 SECONDS (20.8-31.5)
[2018-11-29 13:29] LABS: ALBUMIN 3.7 gm/dl (3.1-4.5); ALKALINE PHOSPHATASE 149 U/L (45-117); BUN 24 mg/dl (7-24); CHLORIDE 99 mmol/L (98-107); CREATININE 1.32 mg/dL (0.70-1.30); POTASSIUM 2.9 mmol/L (3.5-5.1); SGOT/AST 21 IU/L (3-35); SGPT/ALT 25 U/L (12-78); SODIUM 140 mmol/L (136-145); TOTAL PROTEIN 7.4 gm/dL (6.4-8.2)
[2018-11-29 13:35] LABS: TROPONIN I < 0.015 ng/ml (<0.045)
[2018-11-29 14:15] VITALS: BP 132/64
[2018-11-29 16:00] VITALS: BP 128/57
[2018-11-29 20:00] VITALS: BP 132/59
[2018-11-29] MEDS ORDERED: CYMBALTA60 MG PO (22:10)
[2018-11-29] MEDS ORDERED: LOSARTAN-HCTZ1 EAC1 PO (22:12)
[2018-11-30] VITALS: BP 169/72
[2018-11-30 06:23] LABS: BASO % 0.1 % (0.0-1.0); HEMATOCRIT 41.9 % (42.0-52.0); HEMOGLOBIN 13.6 g/dl (14.0-18.0); LYMPH # 0.8 10*3/uL (1.3-4.4); LYMPH % 10.9 % (27.0-41.0); MEAN CELL VOLUME 89.5 fl (80.0-94.0); MEAN CORPUSCULAR HGB 29.1 pg (27.0-31.0); MEAN CORPUSCULAR HGB CONC 32.5 g/dl (33.0-37.0); MEAN PLATELET VOLUME 10.7 fl (9.6-12.3); MONO # 0.2 10*3/uL (0.1-1.0); MONO % 2.5 % (3.0-9.0); NEUT # 6.5 10*3/uL (2.3-7.9); NEUT % 86.1 % (47.0-73.0); PLATELET COUNT AUTOMATED 194 10*3/uL (130-400); RED BLOOD COUNT 4.68 10*6/uL (4.50-5.90); RED CELL DISTRI WIDTH 13.5 % (0-14.5); WHITE BLOOD COUNT 7.5 10*3/uL (4.8-10.8)
[2018-11-30 06:55] LABS: ALBUMIN 3.4 gm/dl (3.1-4.5); CREATININE 1.54 mg/dL (0.70-1.30); PHOSPHOROUS 2.5 mg/dL (2.5-4.9); POTASSIUM 2.8 mmol/L (3.5-5.1); TOTAL PROTEIN 7.4 gm/dL (6.4-8.2)
[2018-11-30 08:00] VITALS: BP 96/73
[2018-11-30 12:00] VITALS: BP 142/63
[2018-11-30] MEDS ORDERED: SYMB160 INH (14:33)
[2018-11-30] MEDS ORDERED: PROAIR HFA8.5 GM INH (14:34)
[2018-11-30 16:00] VITALS: BP 136/68
[2018-11-30 20:00] VITALS: BP 124/64
[2018-12-01] VITALS: BP 121/48
[2018-12-01 08:00] VITALS: BP 136/57
[2018-12-01 09:01] LABS: HEMATOCRIT 41.4 % (42.0-52.0); MEAN CELL VOLUME 88.1 fl (80.0-94.0); MEAN CORPUSCULAR HGB 29.8 pg (27.0-31.0); MEAN CORPUSCULAR HGB CONC 33.8 g/dl (33.0-37.0); MEAN PLATELET VOLUME 10.8 fl (9.6-12.3); PLATELET COUNT AUTOMATED 217 10*3/uL (130-400); RED CELL DISTRI WIDTH 13.9 % (0-14.5); WHITE BLOOD COUNT 20.8 10*3/uL (4.8-10.8)
[2018-12-01 09:21] LABS: PLATELET SUFFICIENCY NORMAL (NORMAL); TOTAL CELLS COUNTED 100 #CELLS
[2018-12-01 09:26] LABS: ALBUMIN 3.4 gm/dl (3.1-4.5); ALKALINE PHOSPHATASE 126 U/L (45-117); BUN 26 mg/dl (7-24); CHLORIDE 107 mmol/L (98-107); CREATININE 1.29 mg/dL (0.70-1.30); POTASSIUM 2.6 mmol/L (3.5-5.1); SGOT/AST 38 IU/L (3-35); SGPT/ALT 31 U/L (12-78); SODIUM 144 mmol/L (136-145); TOTAL PROTEIN 7.2 gm/dL (6.4-8.2)
[2018-12-01 12:00] VITALS: BP 116/51; BP 142/67
[2018-12-01 16:00] VITALS: BP 141/85
[2018-12-01 20:00] VITALS: BP 140/75
[2018-12-02] VITALS: BP 114/55
[2018-12-02 06:31] LABS: BASO % 0.1 % (0.0-1.0); EOS % 0.1 % (1.0-4.0); HEMOGLOBIN 14.8 g/dl (14.0-18.0); LYMPH # 1.4 10*3/uL (1.3-4.4); LYMPH % 7.9 % (27.0-41.0); MEAN CELL VOLUME 89.5 fl (80.0-94.0); MEAN CORPUSCULAR HGB 29.4 pg (27.0-31.0); MEAN CORPUSCULAR HGB CONC 32.9 g/dl (33.0-37.0); MEAN PLATELET VOLUME 10.8 fl (9.6-12.3); MONO # 0.9 10*3/uL (0.1-1.0); NEUT # 15.5 10*3/uL (2.3-7.9); NEUT % 85.8 % (47.0-73.0); PLATELET COUNT AUTOMATED 223 10*3/uL (130-400); RED BLOOD COUNT 5.03 10*6/uL (4.50-5.90)
[2018-12-02 06:34] LABS: BUN 22 mg/dl (7-24); CHLORIDE 106 mmol/L (98-107); CREATININE 1.16 mg/dL (0.70-1.30); POTASSIUM 2.5 mmol/L (3.5-5.1); SODIUM 145 mmol/L (136-145)
[2018-12-02 08:00] VITALS: BP 130/53
[2018-12-02 12:00] VITALS: BP 143/68
[2018-12-02 15:58] LABS: ALBUMIN 3.4 gm/dl (3.1-4.5); ALKALINE PHOSPHATASE 124 U/L (45-117); BUN 21 mg/dl (7-24); CHLORIDE 106 mmol/L (98-107); CREATININE 1.14 mg/dL (0.70-1.30); POTASSIUM 3.1 mmol/L (3.5-5.1); SGOT/AST 35 IU/L (3-35); SGPT/ALT 37 U/L (12-78); SODIUM 145 mmol/L (136-145); TOTAL PROTEIN 6.9 gm/dL (6.4-8.2)
[2018-12-02 16:00] VITALS: BP 110/87
[2018-12-02 20:00] VITALS: BP 132/78
[2018-12-03] VITALS: BP 122/83
[2018-12-03 06:30] LABS: HEMATOCRIT 44.7 % (42.0-52.0); HEMOGLOBIN 14.5 g/dl (14.0-18.0); MEAN CELL VOLUME 89.6 fl (80.0-94.0); MEAN CORPUSCULAR HGB 29.1 pg (27.0-31.0); MEAN CORPUSCULAR HGB CONC 32.4 g/dl (33.0-37.0); PLATELET COUNT AUTOMATED 222 10*3/uL (130-400); RED BLOOD COUNT 4.99 10*6/uL (4.50-5.90); RED CELL DISTRI WIDTH 13.9 % (0-14.5); WHITE BLOOD COUNT 12.9 10*3/uL (4.8-10.8)
[2018-12-03 06:39] LABS: ALBUMIN 3.4 gm/dl (3.1-4.5); ALKALINE PHOSPHATASE 119 U/L (45-117); BUN 18 mg/dl (7-24); CHLORIDE 106 mmol/L (98-107); CREATININE 0.82 mg/dL (0.70-1.30); SGOT/AST 27 IU/L (3-35); SGPT/ALT 37 U/L (12-78); SODIUM 144 mmol/L (136-145); TOTAL PROTEIN 6.7 gm/dL (6.4-8.2)
[2018-12-03 07:46] LABS: ATYPICAL LYMPHS 2 % (0-0); PLASMA CELL 1 % (0-0); TOTAL CELLS COUNTED 100 #CELLS
[2018-12-03 07:47] LABS: PLATELET SUFFICIENCY NORMAL (NORMAL)
[2018-12-03 08:00] VITALS: BP 115/68
[2018-12-03 12:00] VITALS: BP 116/65
[2018-12-03 13:21] LABS: BILIRUBIN NEGATIVE (NEGATIVE); BLOOD NEGATIVE (NEGATIVE); CLARITY CLEAR (CLEAR); COLOR YELLOW (YELLOW); GLUCOSE NEGATIVE (NEGATIVE); KETONE NEGATIVE (NEGATIVE); LEUKO ESTERASE NEGATIVE (NEGATIVE); NITRITE NEGATIVE (NEGATIVE); UROBILINOGEN 0.2 E.U./dl (0.2-1.0)
[2018-12-03 13:23] LABS: URINE CREATININE RANDOM 82.8 mg/dL
[2018-12-03 16:00] VITALS: BP 122/64
[2018-12-03 20:00] VITALS: BP 131/68
[2018-12-04] VITALS: BP 134/70
[2018-12-04 08:00] VITALS: BP 125/60
[2018-12-04 08:18] LABS: HEMATOCRIT 47.7 % (42.0-52.0); HEMOGLOBIN 15.7 g/dl (14.0-18.0); MEAN CELL VOLUME 88.7 fl (80.0-94.0); MEAN CORPUSCULAR HGB 29.2 pg (27.0-31.0); MEAN CORPUSCULAR HGB CONC 32.9 g/dl (33.0-37.0); MEAN PLATELET VOLUME 10.6 fl (9.6-12.3); PLATELET COUNT AUTOMATED 230 10*3/uL (130-400); RED BLOOD COUNT 5.38 10*6/uL (4.50-5.90); RED CELL DISTRI WIDTH 13.5 % (0-14.5); WHITE BLOOD COUNT 11.5 10*3/uL (4.8-10.8)
[2018-12-04 08:45] LABS: ATYPICAL LYMPHS 1 % (0-0); PLATELET SUFFICIENCY NORMAL (NORMAL); TOTAL CELLS COUNTED 100 #CELLS
[2018-12-04 08:46] LABS: BURR CELLS FEW
[2018-12-04 08:48] LABS: BUN 21 mg/dl (7-24); CHLORIDE 105 mmol/L (98-107); CREATININE 0.97 mg/dL (0.70-1.30); POTASSIUM 3.7 mmol/L (3.5-5.1); SODIUM 144 mmol/L (136-145)
[2018-12-04 12:00] VITALS: BP 125/64
[2018-12-04 16:00] VITALS: BP 133/68
[2018-12-04 20:00] VITALS: BP 136/62
[2018-12-05] VITALS: BP 142/64
[2018-12-05 06:22] LABS: BUN 26 mg/dl (7-24); CHLORIDE 108 mmol/L (98-107); CREATININE 0.95 mg/dL (0.70-1.30); POTASSIUM 3.5 mmol/L (3.5-5.1); SODIUM 145 mmol/L (136-145)
[2018-12-05 08:00] VITALS: BP 149/60
[2018-12-05 12:00] VITALS: BP 156/77
[2018-12-05 16:00] VITALS: BP 136/56
[2018-12-05 20:16] VITALS: BP 125/57
[2018-12-05 22:00] VITALS: BP 152/78
[2018-12-06] VITALS: BP 144/73
[2018-12-06 06:52] LABS: BUN 29 mg/dl (7-24); CHLORIDE 110 mmol/L (98-107); POTASSIUM 3.8 mmol/L (3.5-5.1); SODIUM 145 mmol/L (136-145)
[2018-12-06 08:00] VITALS: BP 107/90
[2018-12-06 12:00] VITALS: BP 150/64
[2018-12-06 16:00] VITALS: BP 124/66
[2018-12-06 20:00] VITALS: BP 152/77
[2018-12-07] VITALS (10 sets, daily range): BP systolic 101–153; BP diastolic 54–83
[2018-12-07 07:03] LABS: HEMATOCRIT 44.7 % (42.0-52.0); HEMOGLOBIN 14.8 g/dl (14.0-18.0); MEAN CELL VOLUME 90.7 fl (80.0-94.0); MEAN CORPUSCULAR HGB CONC 33.1 g/dl (33.0-37.0); MEAN PLATELET VOLUME 10.7 fl (9.6-12.3); PLATELET COUNT AUTOMATED 253 10*3/uL (130-400); RED BLOOD COUNT 4.93 10*6/uL (4.50-5.90); RED CELL DISTRI WIDTH 13.9 % (0-14.5); WHITE BLOOD COUNT 15.6 10*3/uL (4.8-10.8)
[2018-12-07 07:25] LABS: BUN 27 mg/dl (7-24); CHLORIDE 109 mmol/L (98-107); CREATININE 0.87 mg/dL (0.70-1.30); POTASSIUM 3.9 mmol/L (3.5-5.1); SODIUM 147 mmol/L (136-145)
[2018-12-07 08:05] LABS: PLATELET SUFFICIENCY NORMAL (NORMAL); TOTAL CELLS COUNTED 100 #CELLS
[2018-12-08] VITALS: BP 134/58
[2018-12-08 06:14] LABS: BUN 24 mg/dl (7-24); CHLORIDE 109 mmol/L (98-107); CREATININE 0.86 mg/dL (0.70-1.30); POTASSIUM 3.5 mmol/L (3.5-5.1); SODIUM 145 mmol/L (136-145)
[2018-12-08 06:15] LABS: HEMATOCRIT 43.6 % (42.0-52.0); HEMOGLOBIN 14.2 g/dl (14.0-18.0); MEAN CELL VOLUME 89.9 fl (80.0-94.0); MEAN CORPUSCULAR HGB 29.3 pg (27.0-31.0); MEAN CORPUSCULAR HGB CONC 32.6 g/dl (33.0-37.0); MEAN PLATELET VOLUME 10.5 fl (9.6-12.3); PLATELET COUNT AUTOMATED 228 10*3/uL (130-400); RED BLOOD COUNT 4.85 10*6/uL (4.50-5.90); RED CELL DISTRI WIDTH 13.9 % (0-14.5); WHITE BLOOD COUNT 13.5 10*3/uL (4.8-10.8)
[2018-12-08 07:14] LABS: TOTAL CELLS COUNTED 100 #CELLS
[2018-12-08 07:15] LABS: PLATELET SUFFICIENCY NORMAL (NORMAL)
[2018-12-08 08:00] VITALS: BP 142/89
[2018-12-08 12:00] VITALS: BP 138/87
[2018-12-08 16:00] VITALS: BP 144/65
[2018-12-08 16:06] LABS: ACID FAST SPEC PROCESSING Concentration (.)
[2018-12-08 20:00] VITALS: BP 163/69
[2018-12-09] VITALS: BP 142/82
[2018-12-09 07:02] LABS: BUN 30 mg/dl (7-24); CHLORIDE 108 mmol/L (98-107); CREATININE 1.06 mg/dL (0.70-1.30); POTASSIUM 3.5 mmol/L (3.5-5.1); SODIUM 145 mmol/L (136-145)
[2018-12-09 08:00] VITALS: BP 156/78
[2018-12-09] MEDS ORDERED: KLOR-CON M2020 ME1 PO (10:12)
[2018-12-09] MEDS ORDERED: PREDNISONE10 MG PO (10:12)
[2018-12-09] MEDS ORDERED: LOSARTAN POTASS50 M1 PO (10:12)
[2019-01-07] MEDS ORDERED: K-TAB20 MEQ PO (11:03)
[2019-01-12] MEDS ORDERED: FUROSEMIDE40 MG PO (15:30)
[2019-01-12] MEDS ORDERED: XARE20MG PO (15:30)
[2019-01-12] MEDS ORDERED: DIGOXIN250 MCG PO (15:30)
[2019-01-12] MEDS ORDERED: KLOR-CON M2020 ME1 PO (15:30)
[2019-01-12] MEDS ORDERED: LOPRESSOR25 MG PO (15:30)
[2019-01-20 13:04] LABS: ACID FAST CULTURE Negative (.)
== END 2018-12-09 13:54 | disposition home or self-care (01) | DRG 189 ==
LOC: ED 12:19 → 5E 14:22 → EDHOLD 14:22 → 5E 14:41
PROVIDERS: Internal Medicine; Internal Medicine Critical Care Medicine; Nurse Practitioner Family; Registered Nurse; ADMIT Internal Medicine
PROC: 0BC98ZZ Extirpation of Matter from Lingula Bronchus, Via Natural or Artificial Opening Endoscopic (ICD-10-PCS; principal; 2018-12-07)
PROC: 0BC68ZZ Extirpation of Matter from Right Lower Lobe Bronchus, Via Natural or Artificial Opening Endoscopic (ICD-10-PCS; principal; 2018-12-07)
PROC: 0BC88ZZ Extirpation of Matter from Left Upper Lobe Bronchus, Via Natural or Artificial Opening Endoscopic (ICD-10-PCS; principal; 2018-12-07)
PROC: 0BC48ZZ Extirpation of Matter from Right Upper Lobe Bronchus, Via Natural or Artificial Opening Endoscopic (ICD-10-PCS; principal; 2018-12-07)
PROC: 0BDM8ZX Extraction of Bilateral Lungs, Via Natural or Artificial Opening Endoscopic, Diagnostic (ICD-10-PCS; principal; 2018-12-07)
PROC: 0BCB8ZZ Extirpation of Matter from Left Lower Lobe Bronchus, Via Natural or Artificial Opening Endoscopic (ICD-10-PCS; principal; 2018-12-07)
PROC: 0BC38ZZ Extirpation of Matter from Right Main Bronchus, Via Natural or Artificial Opening Endoscopic (ICD-10-PCS; principal; 2018-12-07)
PROC: 0BC78ZZ Extirpation of Matter from Left Main Bronchus, Via Natural or Artificial Opening Endoscopic (ICD-10-PCS; principal; 2018-12-07)
PROC: 0BC58ZZ Extirpation of Matter from Right Middle Lobe Bronchus, Via Natural or Artificial Opening Endoscopic (ICD-10-PCS; principal; 2018-12-07)
DX: J96.01 Acute respiratory failure with hypoxia (principal); N17.0 Acute kidney failure with tubular necrosis; J44.1 Chronic obstructive pulmonary disease with (acute) exacerbation; E87.2 Acidosis; E44.0 Moderate protein-calorie malnutrition; E87.0 Hyperosmolality and hypernatremia; T17.590A Other foreign object in bronchus causing asphyxiation, initial encounter; J44.0 Chronic obstructive pulmonary disease with (acute) lower respiratory infection; J45.21 Mild intermittent asthma with (acute) exacerbation; E86.0 Dehydration; J20.9 Acute bronchitis, unspecified; N40.0 Benign prostatic hyperplasia without lower urinary tract symptoms; E87.6 Hypokalemia; T38.0X5A Adverse effect of glucocorticoids and synthetic analogues, initial encounter; I10 Essential (primary) hypertension; E11.65 Type 2 diabetes mellitus with hyperglycemia; I48.0 Paroxysmal atrial fibrillation; E66.9 Obesity, unspecified; R74.8 Abnormal levels of other serum enzymes; E11.42 Type 2 diabetes mellitus with diabetic polyneuropathy; Z96.652 Presence of left artificial knee joint; Z90.49 Acquired absence of other specified parts of digestive tract; Z90.79 Acquired absence of other genital organ(s); Z88.0 Allergy status to penicillin; Z88.8 Allergy status to other drugs, medicaments and biological substances; Z79.82 Long term (current) use of aspirin; Z68.34 Body mass index [BMI] 34.0-34.9, adult; Z85.51 Personal history of malignant neoplasm of bladder; Z80.0 Family history of malignant neoplasm of digestive organs; Z79.899 Other long term (current) drug therapy; X58.XXXA Exposure to other specified factors, initial encounter; Y93.89 Activity, other specified; Y92.89 Other specified places as the place of occurrence of the external cause; Y99.8 Other external cause status